=== PATIENT | female | born 1945 | race Caucasian/White ===

== ENCOUNTER → 2024-02-16 09:49 | Outpatient (REF) | payer MEDICARE, OTHER, SELFPAY | LOC: RAD 09:49 | PROVIDERS: ATTENDING PHYSICIAN Internal Medicine | DX: R05.1 Acute cough (principal) | CPT/HCPCS: 71046 ==

== ENCOUNTER → 2024-04-21 13:55 | Outpatient (REF) | payer MEDICARE, OTHER, SELFPAY | LOC: WDC 13:55 | PROVIDERS: ATTENDING PHYSICIAN Internal Medicine | DX: Z12.31 Encounter for screening mammogram for malignant neoplasm of breast (principal) | CPT/HCPCS: 77063; 77067 ==

== ENCOUNTER 2024-07-01 23:08 | Emergency (ER) | payer MEDICARE, OTHER, SELFPAY ==
[2024-07-01 23:12] VITALS: BP 129/68
[2024-07-01 23:14] VITALS: BMI 22.8
[2024-07-01 23:39] LABS: % Basophils 0.7 % (0-2); % Immature Granulocytes 0.4 % (0-0.5); % Lymphocytes 22.2 % (20.5-51.1); % Monocytes 10.8 % (1.7-9.3); % Neutrophils 63.9 % (42.2-75.2); Absolute Basophils 0.1 10^3/uL (0-0.2); Absolute Eosinophils 0.2 10^3/uL (0-0.7); Absolute Lymphocytes 1.7 10^3/uL (1.2-3.4); Absolute Monocytes 0.8 10^3/uL (0.1-0.6); Absolute Neutrophils 4.7 10^3/uL (1.4-6.5); Hematocrit 34.7 % (37.0-47.0); Mean Corp Hgb Conc. 34.6 g/dL (33.0-37.0); Mean Corpuscular Hgb 31.4 pg (27.0-31.0); Mean Corpuscular Volume 90.8 fL (81.0-99.0); Mean Platelet Volume 11.5 fL (7.4-10.4); Nucleated Red Blood Cells % 0 %; Platelet Count 155 10^3/uL (130-400); Red Blood Cell Count 3.82 10^6/uL (4.20-5.40); Red Cell Dist. Width 12.6 % (11.5-14.5); White Blood Cell Count 7.4 10^3/uL (4.8-10.8)
[2024-07-01 23:59] LABS: ALT (SGPT) 25 U/L (0-35); AST (SGOT) 36 U/L (14-36); Albumin 3.9 g/dl (3.5-5.0); Alkaline Phosphatase 81 U/L (38-126); Blood Urea Nitrogen 21 mg/dl (7-17); Carbon Dioxide 28 mmol/L (22-30); Chloride 101 mmol/L (98-107); Estimated Creatinine Clearance 61 ml/min; Glucose 99 mg/dl (70-99); Potassium 4.2 mmol/L (3.5-5.1); Sodium 137 mmol/L (135-145); Total Bilirubin 0.5 mg/dl (0.2-1.3); Total Protein 6.1 g/dl (6.3-8.2); eGFR > 60.00
[2024-07-02] VITALS: BP 112/59
[2024-07-02 00:01] LABS: Troponin I < 0.012 ng/ml
[2024-07-02 01:00] VITALS: BP 123/71
--- NOTE | 2024-07-02 01:27 | ED.GENMED ---
History of Present Illness
General
Chief Complaint: Chest Pain
Source: patient
Exam Limitations: none
Time Seen by Provider: 07/02/24 00:45
Nursing documentation reviewed up to this point in time: agreed with
History of Present Illness
History of Present Illness:
79-year-old female presents from home with substernal, nonradiating chest pain that began around 9:30 PM. She states that she called 911 after waking up with chest heaviness. She does report some nausea and states that sometimes heaviness is
confused with nausea. She states that for the last 2 weeks she has had 3-4 episodes similar to tonight. 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 Alfredo Roper. She states that tonight it did not relieve the pain.
Patient did report some nausea and dizziness after the nitroglycerin so she became concerned and called 911. Patient does have coronary artery disease and cardiac stenting.
Past History
Past History
ED Past Medical History: CAD and Hypercholesterolemia
ED Past Surgical History: Cardiac
Social History
Tobacco: Non-smoker
Alcohol: None
Drug: None
Personal:
Living: with family
Employment: Employed
Review of Systems
Review of Systems
Allergies reviewed?: Yes
All Other Systems: ROS reviewed and negative except as documented in HPI and ROS
Constitutional: Reports no symptoms
EENT: Reports no symptoms
Respiratory: Reports no symptoms
Cardiac: Reports chest pain
ABD/GI: Reports no symptoms
: Reports no symptoms
Musculoskeletal: Reports no symptoms
Skin: Reports no symptoms
Neurological: Reports no symptoms
Endocrine: Reports no symptoms
Hematologic/Lymphatic: Reports no symptoms
Psychiatric: Reports no symptoms
Phy Exam
General Physical Exam
General Presentation: well appearing and no apparent distress
General Skin: warm and dry
General Habitus: normal
General Mental: alert
General Hydration: appears well hydrated
ENT Exam
ENT Exam: EOMI, pharynx normal, neck supple and normocephalic
Eye Exam
Eye Exam: PERRL, cornea clear and conjunctiva normal
Cardiovascular Exam
Cardiovascular Exam: regular rate/rhythm, no edema, no murmur and normal peripheral pulses
Pulmonary Exam
Pulmonary Exam: lungs clear, no respiratory distress, no rales, no crackles, no rhonchi, no stridor, no wheezing and no cough
Gastrointestinal Exam
Gastrointestinal Exam: normal bowel sounds, non tender, soft, no organomegaly, no pulsatile mass and non distended
Neurological Exam
Neurological Exam: alert, oriented x3, no motor deficits and speech normal
Musculoskeletal Exam
Musculoskeletal Exam: full ROM and no edema
Skin Exam
Skin Exam: normal color, warm/dry, no rash and no petechia
Psychiatric Exam
Psychiatric Exam: normal mood/affect
Scores
Heart Score for Chest Pain Patients
STEMI patient?: No
History: Slightly or Non-Suspicious
ECG: Normal
Age: >/= 65 years
Risk Factors: >/= 3 Risk Factors or History of CAD
Troponin: </= Normal Limit
Heart Score for Chest Pain Patients: 4
Heart Score Risk: 20.3% MACE over next 6 weeks
Course
Orders/Labs/Results
Orders:
Orders
07/01/24 23:13
EKG [Electrocardiogram (*1)] Urgent
Reason for Study: Chest Pain
EKG- Treatment ONCE
07/01/24 23:30
Complete Blood Count/With Diff Urgent
Comprehensive Metabolic Panel Urgent
Troponin I Urgent
07/02/24 03:06
Troponin I Urgent
Abnormal Lab Results
07/01/24
23:30
RBC 3.82 L 10^6/uL
(4.20-5.40)
Hct 34.7 L %
(37.0-47.0)
MCH 31.4 H pg
(27.0-31.0)
MPV 11.5 H fL
(7.4-10.4)
Absolute Monos (auto) 0.8 H 10^3/uL
(0.1-0.6)
Monocytes % 10.8 H %
(1.7-9.3)
BUN 21 H mg/dl
(7-17)
Total Protein 6.1 L g/dl
(6.3-8.2)
07/01/24 23:30
07/01/24 23:30
Vital Signs
Initial and Last Documented VS:
Initial Vital Signs
BP
129/68
07/01/24 23:12
Last Documented Vital Signs
Temp Pulse Resp BP Pulse Ox
97.9 F 62 15 113/59 97
07/01/24 23:14 07/02/24 04:00 07/02/24 04:00 07/02/24 04:00 07/02/24 04:00
*Critical Care Note
Total Time (30-74mins, 75-104mins- exclusive of procedures): Not Applicable
ED Attending Note
-
Portions of this chart may have been created with voice recognition software.� Occasional wrong word or��sound alike� substitutions may have occurred due to the inherent limitations of voice recognition software.
Discharge Plan
Departure
Patient Disposition: Home (Routine Discharge)
Date of Disposition: 07/02/24
Time of Disposition: 04:16
Patient with high blood pressure during this ER visit?: No
Discharge Problem:
Chest pain
Instructions: Chest Pain DCA Follow Up
Prescriptions:
No Action
lorazepam 0.5 MG tablet
0.5 mg PO Q4HPRN PRN (Reason: anxiety)
metoprolol succinate 25 MG tablet extended release 24 hr
12.5 mg PO DAILY
cholecalciferol (vitamin D3) [Vitamin D3] 1,000 UNIT tablet
1,000 unit PO DAILY
aspirin 81 MG tablet,chewable
81 mg PO DAILY
atorvastatin 40 MG tablet
80 mg PO QPM
omega-3 acid ethyl esters [Lovaza] 1 GM capsule
1 gm PO DAILY
coenzyme [id number] E [Co Q-10 (with Vit E)] 1 EACH capsule
1 ea PO DAILY
valacyclovir [Valtrex] 1,000 MG tablet
1,000 mg PO PRN PRN (Reason: as directed)
calcium carbonate 600 MG tablet
1,200 mg PO DAILY
lysine HCl 500 MG tablet
500 mg PO DAILY
eknvzvbw-fob-uxbi-FA-vit K-lut [Centrum Silver Women] 1 EACH tablet
1 ea PO DAILY
lansoprazole 30 MG capsule,delayed release(DR/EC)
30 mg PO DAILY
Patient Comments:
stopped 2 days ago
escitalopram oxalate 10 MG tablet
15 mg PO DAILY
ocvaxvimhwn-P1-Jeoboetej serr 1 EACH tablet
1 ea PO DAILY
loratadine 10 MG tablet
10 mg PO DAILY
prednisone 10 MG tablet
10 mg PO DAILY Qty: 16 0RF
doxycycline hyclate 100 MG capsule
100 mg PO Q12 Qty: 12 0RF
ranolazine 500 MG tablet extended release 12 hr
1,000 mg PO BID Qty: 60 10RF
Referrals:
Alfredo Roper MD [Active] - Call in 1-3 days for appt
Kimberly Garner NP [Family Provider] -
Activity Restrictions/Additional Instructions:
It was a pleasure meeting you and taking part in your care. We hope for your continued healing and wellness.
Please read discharge instructions in their entirety. However, they are for general education and may not describe your exact diagnosis at discharge. Information on your ER visit and medical conditions were discussed with you along with appropriate
follow up information...
If indicated, please take your medications as instructed and indicated on discharge paperwork.
Please schedule a follow up appointment as directed. Call to schedule an appointment
Please return to the emergency department with ANY change in, persisting, or worsening of symptoms. If any of your symptoms do not improve, or persist, or become more severe within 6-12 hours, please return to the emergency department for further
care.
Please return to the emergency department if you develop a headache, neck pain/stiffness, fever greater than 100.4F, chest pain, shortness of breath, persistent nausea, vomiting, slurred speech, difficulty walking, numbness/tingling, weakness, signs
of infection or any other symptoms that are worrisome to you.
If you have any questions or concerns please do not hesitate to call the Hospital at or E-mail me directly at [email or web address]
Interventions
Interventions:
*Risk Screen - Suicide Last Done: 07/01/24 23:14
*General Assessment Last Done: 07/01/24 23:14
*Neglect/Abuse Screening Last Done: 07/01/24 23:14
ED- Fall Risk Assessment Last Done: 07/02/24 04:29
*ED COVID-19 Vaccine History Last Done: 07/01/24 23:14
*Nursing Disposition Last Done: 07/02/24 04:29
ED- Cardiac Assessment Last Done: 07/01/24 23:14
Discharge Date and Time
Discharge Date/Time: 07/02/24 04:46
Print Language: KINYARWANDA
[2024-07-02 02:00] VITALS: BP 117/60
[2024-07-02 03:00] VITALS: BP 109/61
[2024-07-02 03:49] LABS: Troponin I < 0.012 ng/ml
[2024-07-02 04:00] VITALS: BP 113/59
== END 2024-07-02 04:46 | disposition home or self-care (01) ==
LOC: EMR 23:08
PROVIDERS: EMERGENCY PHYSICIAN Student in an Organized Health Care Education/Training Program; FAMILY PHYSICIAN Internal Medicine
DX: R07.89 Other chest pain (principal); I25.10 Atherosclerotic heart disease of native coronary artery without angina pectoris; Z95.5 Presence of coronary angioplasty implant and graft
CPT/HCPCS: 99284; 80053; 84484; 85025; 93005

== ENCOUNTER → 2024-07-07 10:14 | Outpatient (REF) | payer MEDICARE, OTHER, SELFPAY | LOC: RCS 10:14 | PROVIDERS: ATTENDING PHYSICIAN Physician Assistant; FAMILY PHYSICIAN Internal Medicine | DX: I25.10 Atherosclerotic heart disease of native coronary artery without angina pectoris (principal) | CPT/HCPCS: 93306 ==

== ENCOUNTER → 2024-10-01 07:43 | Outpatient (REF) | payer MEDICARE, OTHER, SELFPAY ==
[2024-10-01 09:18] LABS: % Basophils 0.6 % (0-2); % Eosinophils 2.6 % (0-6); % Immature Granulocytes 0.4 % (0-0.5); % Lymphocytes 23.9 % (20.5-51.1); % Monocytes 9.7 % (1.7-9.3); % Neutrophils 62.8 % (42.2-75.2); Absolute Eosinophils 0.1 10^3/uL (0-0.7); Absolute Lymphocytes 1.2 10^3/uL (1.2-3.4); Absolute Monocytes 0.5 10^3/uL (0.1-0.6); Absolute Neutrophils 3.2 10^3/uL (1.4-6.5); Hematocrit 38.4 % (37.0-47.0); Hemoglobin 12.8 g/dL (12.0-16.0); Mean Corp Hgb Conc. 33.3 g/dL (33.0-37.0); Mean Corpuscular Hgb 32.7 pg (27.0-31.0); Nucleated Red Blood Cells % 0 %; Platelet Count 189 10^3/uL (130-400); Red Blood Cell Count 3.92 10^6/uL (4.20-5.40); Red Cell Dist. Width 12.4 % (11.5-14.5); White Blood Cell Count 5.1 10^3/uL (4.8-10.8)
[2024-10-01 10:20] LABS: ALT (SGPT) 22 U/L (0-35); AST (SGOT) 36 U/L (14-36); Albumin 4.1 g/dl (3.5-5.0); Alkaline Phosphatase 86 U/L (38-126); Blood Urea Nitrogen 15 mg/dl (7-17); Carbon Dioxide 31 mmol/L (22-30); Chloride 101 mmol/L (98-107); Glucose 91 mg/dl (70-99); HDL Cholesterol 69 mg/dl; Potassium 4.9 mmol/L (3.5-5.1); Sodium 138 mmol/L (135-145); Total Bilirubin 1.1 mg/dl (0.2-1.3); Total Cholesterol 142 mg/dl (50-199); Total Protein 6.2 g/dl (6.3-8.2); Vitamin D, 25-OH*** 43.6 ng/mL (30-80); eGFR > 60.00
[2024-10-01 10:21] LABS: TSH Reflex To Free T4 2.77 uIU/ml (0.47-4.68)
[2024-10-01 11:07] LABS: LDL Cholesterol, Calculated 60 mg/dl; Triglyceride 69 mg/dl (10-149); Very Low Density Lipoprotein 13 mg/dl (0-30)
== END ==
LOC: REG 07:43
PROVIDERS: ATTENDING PHYSICIAN Internal Medicine
DX: Z00.00 Encounter for general adult medical examination without abnormal findings (principal); I25.10 Atherosclerotic heart disease of native coronary artery without angina pectoris; E78.2 Mixed hyperlipidemia; M85.80 Other specified disorders of bone density and structure, unspecified site
CPT/HCPCS: 36415; 80053; 80061; 82306; 84443; 85025

== ENCOUNTER 2025-01-19 09:43 | Emergency (ER) | payer MEDICARE, OTHER, SELFPAY ==
[2025-01-19] VITALS (7 sets, daily range): BP systolic 93–146; BP diastolic 53–88; BMI 22.1
[2025-01-19 10:16] LABS: % Basophils 0.6 % (0-2); % Eosinophils 1.6 % (0-6); % Immature Granulocytes 0.4 % (0-0.5); % Lymphocytes 23.3 % (20.5-51.1); % Monocytes 13.7 % (1.7-9.3); % Neutrophils 60.4 % (42.2-75.2); Absolute Eosinophils 0.1 10^3/uL (0-0.7); Absolute Lymphocytes 1.2 10^3/uL (1.2-3.4); Absolute Monocytes 0.7 10^3/uL (0.1-0.6); Absolute Neutrophils 3.1 10^3/uL (1.4-6.5); Hematocrit 41.3 % (37.0-47.0); Hemoglobin 13.9 g/dL (12.0-16.0); Mean Corp Hgb Conc. 33.7 g/dL (33.0-37.0); Mean Corpuscular Hgb 32.5 pg (27.0-31.0); Mean Corpuscular Volume 96.5 fL (81.0-99.0); Mean Platelet Volume 11.4 fL (7.4-10.4); Nucleated Red Blood Cells % 0 %; Platelet Count 159 10^3/uL (130-400); Red Blood Cell Count 4.28 10^6/uL (4.20-5.40); Red Cell Dist. Width 12.8 % (11.5-14.5); White Blood Cell Count 5.1 10^3/uL (4.8-10.8)
[2025-01-19 10:29] LABS: ALT (SGPT) 32 U/L (0-35); AST (SGOT) 47 U/L (14-36); Albumin 4.3 g/dl (3.5-5.0); Alkaline Phosphatase 74 U/L (38-126); Blood Urea Nitrogen 16 mg/dl (7-17); Calcium 8.8 mg/dl (8.4-10.2); Carbon Dioxide 29 mmol/L (22-30); Chloride 109 mmol/L (98-107); Estimated Creatinine Clearance 61 ml/min; Glucose 92 mg/dl (70-99); Potassium 3.7 mmol/L (3.5-5.1); Sodium 143 mmol/L (135-145); Total Bilirubin 0.8 mg/dl (0.2-1.3); Total Protein 6.7 g/dl (6.3-8.2); eGFR > 60.00
[2025-01-19 11:06] LABS: Troponin I < 0.012 ng/ml
--- NOTE | 2025-01-19 13:43 | ED.GENMED ---
History of Present Illness
General
Chief Complaint: Breathing Problem
Source: patient
Time Seen by Provider: 01/19/25 09:54
History of Present Illness
History of Present Illness:
79-year-old female who presents after she been doing with a cough and a little bit shortness of breath. Reports that she has some chest tightness since yesterday. Recently she was in [place] and felt a scratchy throat prior to going to [place].
Patient denies hemoptysis. No leg swelling.
Past History
Past History
ED Past Medical History: Arrthythmia (Atrial flutter), CAD and Hypercholesterolemia
ED Past Surgical History: Cardiac
Social History
Tobacco: Non-smoker
Alcohol: None
Drug: None
Personal:
Living: with family
Employment: Employed
Phy Exam
Physical Exam
Physical Exam:
CONSTITUTIONAL Patient alert and oriented to person, place and time. Well-appearing. Vital signs reviewed.
HEAD atraumatic, normocephalic.
EYES eyelids normal to inspection, Extraocular muscles intact, Conjunctiva normal, Sclera normal.
NECK normal range of motion, Trachea midline, no jugular venous distention.
RESPIRATORY CHEST No respiratory distress noted, Chest expansion equal, Bilateral breath sounds clear.
CARDIOVASCULAR regular rate and rhythm, Heart sounds normal.
ABDOMEN abdomen nontender, Bowel sounds normal. No distention.
BACK normal inspection, no obvious deformities
UPPER EXTREMITY range of motion normal, Motor strength normal, no cyanosis, no edema.
LOWER EXTREMITY range of motion normal, Motor strength normal, no cyanosis, no edema.
NEURO Speech normal, No focal motor deficits, [place] coma scale 15, Memory normal, Cranial Nerves intact to screening exam.
SKIN skin warm, dry, and normal in color.
Scores
Heart Failure Risk
Heart Failure Risk Score: Not Applicable
Course
Orders/Labs/Results
Orders:
Orders
01/19/25 09:47
EKG [Electrocardiogram (*1)] Urgent
Reason for Study: Chest Pain
EKG- Treatment ONCE
01/19/25 10:04
Complete Blood Count/With Diff Urgent
Comprehensive Metabolic Panel Urgent
Troponin I Urgent
01/19/25 10:25
CR Chest - 2 Views Urgent
Comment:
Reason For Exam: cough
Abnormal Lab Results
01/19/25
10:04
MCH 32.5 H pg
(27.0-31.0)
MPV 11.4 H fL
(7.4-10.4)
Absolute Monos (auto) 0.7 H 10^3/uL
(0.1-0.6)
Monocytes % 13.7 H %
(1.7-9.3)
Chloride 109 H mmol/L
(98-107)
AST 47 H U/L
(14-36)
01/19/25 10:04
01/19/25 10:04
Vital Signs
Initial and Last Documented VS:
Initial Vital Signs
Temp Pulse Resp BP Pulse Ox
98.1 F 84 18 146/88 98
01/19/25 09:44 01/19/25 09:44 01/19/25 09:44 01/19/25 09:44 01/19/25 09:44
Last Documented Vital Signs
Temp Pulse Resp BP Pulse Ox
98.1 F 58 12 115/65 97
01/19/25 09:44 01/19/25 13:30 01/19/25 13:30 01/19/25 13:26 01/19/25 13:30
MDM/Problems Addressed
Differential Diagnosis Includes:
ACS, pneumonia, pneumothorax, reactive airway disease, bronchitis
MDM/Problems Addressed:
Acute bronchitis
*Radiology
Radiology exam reviewed: radiology read reviewed
*Pulse Oximetry
Patient hypoxic: no
*EKG
Interpreted by ED Provider?: Yes
Interpretation: abnormal
Rate: normal
Rhythm: sinus
[place]: normal axis
Ischemia: non-specific ST changes
*Helicopter Crew Chief Interpretation
Rate: normal
Interpretation: normal
Rhythm: sinus
*Critical Care Note
Total Time (30-74mins, 75-104mins- exclusive of procedures): Not Applicable
Data Reviewed
Source: patient
Further Testing Considered But Not Given:
Considered CTA of the chest however no pleuritic pain. No hypoxia. No leg swelling. No signs of DVT.
Patient Management
Escalation/DeEscalation of care consider admission/obs:
Patient appears well. No signs of PE. Suspect acute bronchitis is etiology for her symptoms. Troponin negative despite symptoms since yesterday. Okay for discharge with outpatient follow-up. Albuterol as needed
ED Attending Note
-
Portions of this chart may have been created with voice recognition software.� Occasional wrong word or��sound alike� substitutions may have occurred due to the inherent limitations of voice recognition software.
Discharge Plan
Departure
Patient Disposition: Home (Routine Discharge)
Date of Disposition: 01/19/25
Time of Disposition: 13:46
Patient with high blood pressure during this ER visit?: No
Discharge Problem:
Chest discomfort, Acute bronchitis, Acute upper respiratory infection
Instructions: Acute Bronchitis, Adult (DC), Chest Pain PCP Follow Up
Prescriptions:
New
albuterol sulfate 90 mcg/actuation HFA aerosol inhaler
2 puff inhalation Q6H PRN (Reason: shortness of breath or wheezing) Qty: 6.7 0RF
No Action
lorazepam 0.5 MG tablet
0.5 mg PO Q4HPRN PRN (Reason: anxiety)
metoprolol succinate 25 MG tablet extended release 24 hr
12.5 mg PO DAILY
cholecalciferol (vitamin D3) [Vitamin D3] 1,000 UNIT tablet
1,000 unit PO DAILY
aspirin 81 MG tablet,chewable
81 mg PO DAILY
atorvastatin 40 MG tablet
80 mg PO QPM
omega-3 acid ethyl esters [Lovaza] 1 GM capsule
1 gm PO DAILY
coenzyme [id number] E [Co Q-10 (with Vit E)] 1 EACH capsule
1 ea PO DAILY
valacyclovir [Valtrex] 1,000 MG tablet
1,000 mg PO PRN PRN (Reason: as directed)
calcium carbonate 600 MG tablet
1,200 mg PO DAILY
lysine HCl 500 MG tablet
500 mg PO DAILY
lnyqxebe-ijl-apel-FA-vit K-lut [Centrum Silver Women] 1 EACH tablet
1 ea PO DAILY
lansoprazole 30 MG capsule,delayed release(DR/EC)
30 mg PO DAILY
Patient Comments:
stopped 2 days ago
escitalopram oxalate 10 MG tablet
15 mg PO DAILY
vpspxdrlkfj-R9-Snuhveadt serr 1 EACH tablet
1 ea PO DAILY
loratadine 10 MG tablet
10 mg PO DAILY
prednisone 10 MG tablet
10 mg PO DAILY Qty: 16 0RF
doxycycline hyclate 100 MG capsule
100 mg PO Q12 Qty: 12 0RF
ranolazine 500 MG tablet extended release 12 hr
1,000 mg PO BID Qty: 60 10RF
Referrals:
Kimberly Garner NP [Family Provider] -
Activity Restrictions/Additional Instructions:
Please see your doctor in the next 3 days for follow-up and reevaluation. Return immediately for difficulty breathing, coughing up blood, vomiting, chest pain, weakness of any kind or any other concerns.
Interventions
Interventions:
*Risk Screen - Suicide Last Done: 01/19/25 09:44
*General Assessment Last Done: 01/19/25 09:44
*Neglect/Abuse Screening Last Done: 01/19/25 09:44
*Nursing Disposition Last Done: 01/19/25 14:32
ED- Cardiac Assessment Last Done: 01/19/25 10:00
ED- Pulmonary Assessment Last Done: 01/19/25 10:00
Discharge Date and Time
Discharge Date/Time: 01/19/25 14:33
Print Language: HEBREW
== END 2025-01-19 14:33 | disposition home or self-care (01) ==
LOC: EMR 09:43
PROVIDERS: EMERGENCY PHYSICIAN Emergency Medicine; FAMILY PHYSICIAN Internal Medicine
DX: J06.9 Acute upper respiratory infection, unspecified (principal); J20.9 Acute bronchitis, unspecified; R07.89 Other chest pain
CPT/HCPCS: 99285; 71046; 80053; 84484; 85025; 93005

== ENCOUNTER 2025-01-25 21:21 | Emergency (ER) | payer MEDICARE, OTHER, SELFPAY ==
[2025-01-25 21:30] VITALS: BP 112/53
[2025-01-25 21:32] VITALS: BMI 22.5
--- NOTE | 2025-01-25 21:54 | ED.GENMED ---
History of Present Illness
General
Chief Complaint: Dizziness
Source: patient
Exam Limitations: none
Time Seen by Provider: 01/25/25 21:41
Nursing documentation reviewed up to this point in time: agreed with
History of Present Illness
History of Present Illness:
79-year-old female with history as noted who presents to the emergency department via EMS for evaluation of dizziness. Patient reports sudden onset of symptoms around 7:30 PM while she was watching TV and they have been constant since that time.
She reports a room spinning sensation worse with movement. She reports associated nausea and vomiting. She says she has had URI symptoms�congestion, cough, headaches for the past few days (seen in the ER and diagnosed with bronchitis). She has
never had similar episodes of dizziness in the past. EMS treated her with 1 mg of IV Versed and 4 mg of IV Zofran with some improvement in her symptoms but she still reports significant dizziness. She denies any change in her vision or speech,
focal weakness or numbness in her extremities. Denies any chest pain or shortness of breath.
Past History
Past History
ED Past Medical History: Arrthythmia (Atrial flutter), CAD and Hypercholesterolemia
ED Past Surgical History: Cardiac
Social History
Tobacco: Non-smoker
Alcohol: None
Drug: None
Personal:
Living: with family
Employment: Employed
Review of Systems
Review of Systems
All Other Systems: ROS reviewed and negative except as documented in HPI and ROS
Constitutional: Denies fever or chills
Respiratory: Denies trouble breathing
Cardiac: Denies chest pain
ABD/GI: Reports nausea and vomiting; Denies abdominal pain
: Denies flank pain
Musculoskeletal: Denies neck pain or back pain
Neurological: Reports dizzy and headache; Denies weakness or numbness
Phy Exam
Physical Exam
Physical Exam:
General: Awake, alert, oriented x3; sitting still in bed holding emesis bag
Head: Normocephalic, atraumatic
Eyes: Conjunctiva normal, EOMI�leftward nystagmus; no rotary or vertical nystagmus
Ears: TM somewhat retracted on the left compared to the right but no bulging or erythema of the TMs bilaterally
Throat: Airway intact, handling secretions
Neck: Trachea midline, supple without meningismus
Lungs: Clear to auscultation bilaterally, no wheezing, rales, rhonchi
Heart: Bradycardia with regular rhythm, no murmurs, gallops, or rubs
Abd: Soft, non distended, nontender
Neuro: Cranial nerves intact, speech is fluid without dysarthria, no limb ataxia, motor and sensory intact in all extremities
Extremities: No edema in extremities, warm well-perfused
Scores
Heart Failure Risk
Heart Failure Risk Score: Not Applicable
Heart Score for Chest Pain Patients
STEMI patient?: Not applicable
Withdrawal Assessment of Alcohol
Withdrawal Assessment Completed?: Not applicable
Course
Orders/Labs/Results
Orders:
Orders
01/25/25 21:35
Electrocardiogram (*1) Urgent
Reason for Study: Vertigo / Dizzy
EKG- Treatment ONCE
01/25/25 21:46
CMP [Comprehensive Metabolic Panel] Urgent
Complete Blood Count/With Diff Urgent
01/25/25 21:53
Meclizine [Antivert] 25 mg PO NOW STA
01/25/25 21:54
CT Head W/o Iv Contrast Urgent
Comment:
Reason For Exam: dizziness, headache
01/25/25 22:08
Troponin I Urgent
Abnormal Lab Results
01/25/25
21:46
RBC 3.61 L 10^6/uL
(4.20-5.40)
Hgb 11.7 L g/dL
(12.0-16.0)
Hct 34.4 L %
(37.0-47.0)
MCH 32.4 H pg
(27.0-31.0)
MPV 11.8 H fL
(7.4-10.4)
Absolute Neuts (auto) 8.0 H 10^3/uL
(1.4-6.5)
Neutrophils % 79.9 H %
(42.2-75.2)
Lymphocytes % 12.6 L %
(20.5-51.1)
BUN 23 H mg/dl
(7-17)
Glucose 115 H mg/dl
(70-99)
Total Protein 6.0 L g/dl
(6.3-8.2)
01/25/25 21:46
01/25/25 21:46
Vital Signs
Initial and Last Documented VS:
Initial Vital Signs
Temp Pulse Resp BP Pulse Ox
37.0 C 56 18 112/53 96
01/25/25 21:30 01/25/25 21:30 01/25/25 21:30 01/25/25 21:30 01/25/25 21:30
Last Documented Vital Signs
Temp Pulse Resp BP Pulse Ox
37.0 C 55 17 112/53 100
01/25/25 21:30 01/25/25 21:45 01/25/25 21:45 01/25/25 21:30 01/25/25 21:45
MDM/Problems Addressed
Differential Diagnosis Includes:
Vertigo�eustachian tube dysfunction, labyrinthitis, BPPV; stroke less likely based on clinical picture
MDM/Problems Addressed:
79-year-old female presents for evaluation of acute onset vertiginous symptoms that started this evening in the setting of recent URI symptoms. Suspect likely peripheral vertigo based on history and exam however given her report of headache for the
past few days we will check CT head in an abundance of caution. Will check basic labs, EKG. Symptomatic treatment. Reassess after the above.
Labs reviewed: CBC and CMP no clinically significant abnormalities. Troponin undetectable. CT head no acute abnormalities. Patient feeling much better with treatment here in the ER. Suspect peripheral vertigo related to recent URI. Stable for
discharge, follow-up with PCP patient comfortable with this plan. Copy of labs and imaging given for PCP follow-up. All questions answered.
*Radiology
Radiology exam reviewed: radiology read reviewed
*Pulse Oximetry
Patient hypoxic: no
*EKG
Interpreted by ED Provider?: Yes
Comparison EKG: no changes
Heart Rate: 55
Rate: bradycardiac
Rhythm: sinus
[place]: normal axis
Interval: long QT (Borderline prolonged QT)
QRS Pattern: normal QRS
Ischemia: other (Nonspecific T wave abnormality)
*Critical Care Note
Total Time (30-74mins, 75-104mins- exclusive of procedures): Not Applicable
Data Reviewed
Review of Other/Old Records Reveals: Labs and Records
Source: patient and family
ED Attending Note
-
Portions of this chart may have been created with voice recognition software.� Occasional wrong word or��sound alike� substitutions may have occurred due to the inherent limitations of voice recognition software.
Discharge Plan
Departure
Patient Disposition: Home (Routine Discharge)
Date of Disposition: 01/25/25
Time of Disposition: 23:01
Patient with high blood pressure during this ER visit?: No
Discharge Problem:
Vertigo
Instructions: Vertigo (a Type of Dizziness) (DC)
Prescriptions:
New
meclizine 25 mg tablet
25 mg PO BID PRN (Reason: dizziness) Qty: 14 0RF
No Action
lorazepam 0.5 MG tablet
0.5 mg PO Q4HPRN PRN (Reason: anxiety)
metoprolol succinate 25 MG tablet extended release 24 hr
12.5 mg PO DAILY
cholecalciferol (vitamin D3) [Vitamin D3] 1,000 UNIT tablet
1,000 unit PO DAILY
aspirin 81 MG tablet,chewable
81 mg PO DAILY
atorvastatin 40 MG tablet
80 mg PO QPM
omega-3 acid ethyl esters [Lovaza] 1 GM capsule
1 gm PO DAILY
coenzyme [id number]-[id number] E [Co Q-10 (with Vit E)] 1 EACH capsule
1 ea PO DAILY
valacyclovir [Valtrex] 1,000 MG tablet
1,000 mg PO PRN PRN (Reason: as directed)
calcium carbonate 600 MG tablet
1,200 mg PO DAILY
lysine HCl 500 MG tablet
500 mg PO DAILY
dstwlzgy-yno-pkah-FA-vit K-lut [Centrum Silver Women] 1 EACH tablet
1 ea PO DAILY
lansoprazole 30 MG capsule,delayed release(DR/EC)
30 mg PO DAILY
Patient Comments:
stopped 2 days ago
escitalopram oxalate 10 MG tablet
15 mg PO DAILY
xnrnybmxfcb-F4-Eisjttryn serr 1 EACH tablet
1 ea PO DAILY
loratadine 10 MG tablet
10 mg PO DAILY
prednisone 10 MG tablet
10 mg PO DAILY Qty: 16 0RF
doxycycline hyclate 100 MG capsule
100 mg PO Q12 Qty: 12 0RF
ranolazine 500 MG tablet extended release 12 hr
1,000 mg PO BID Qty: 60 10RF
albuterol sulfate 90 mcg/actuation HFA aerosol inhaler
2 puff inhalation Q6H PRN (Reason: shortness of breath or wheezing) Qty: 6.7 0RF
Referrals:
Tomasa Gaona CRNP [Family Provider, General] - Follow up in 5-7 days
Activity Restrictions/Additional Instructions:
Thank you for visiting the Emergency Department at [facility].
1. Please schedule a follow up appointment as directed. Call first thing tomorrow morning to make an appointment.
2. If indicated, please take your medications as instructed and indicated on discharge paperwork.
3. If any of your symptoms do not improve, or persist, or become more severe within 6-12 hours, please return to the emergency department for further care.
4. Please return to the emergency department if you develop a headache, neck pain/stiffness, fever greater than 100.4F, chest pain, shortness of breath, persistent nausea, vomiting, slurred speech, difficulty walking, numbness/tingling, weakness,
signs of infection or any other symptoms that are worrisome to you.
Please call [phone] if you have any questions.
Interventions
Interventions:
*Risk Screen - Suicide Last Done: 01/25/25 21:32
*General Assessment Last Done: 01/25/25 21:33
*Neglect/Abuse Screening Last Done: 01/25/25 21:32
*ED- Fall Risk Assessment Last Done: 01/25/25 21:51
ED- Neurological Assessment Last Done: 01/25/25 21:50
ED Swallowing Screen Last Done: 01/25/25 21:52
Discharge Date and Time
Print Language: [place]AP[place]
[2025-01-25 21:55] LABS: % Basophils 0.3 % (0-2); % Eosinophils 1.3 % (0-6); % Immature Granulocytes 0.3 % (0-0.5); % Lymphocytes 12.6 % (20.5-51.1); % Monocytes 5.6 % (1.7-9.3); % Neutrophils 79.9 % (42.2-75.2); Absolute Eosinophils 0.1 10^3/uL (0-0.7); Absolute Lymphocytes 1.3 10^3/uL (1.2-3.4); Absolute Monocytes 0.6 10^3/uL (0.1-0.6); Hematocrit 34.4 % (37.0-47.0); Hemoglobin 11.7 g/dL (12.0-16.0); Mean Corpuscular Hgb 32.4 pg (27.0-31.0); Mean Corpuscular Volume 95.3 fL (81.0-99.0); Mean Platelet Volume 11.8 fL (7.4-10.4); Nucleated Red Blood Cells % 0 %; Platelet Count 157 10^3/uL (130-400); Red Blood Cell Count 3.61 10^6/uL (4.20-5.40); Red Cell Dist. Width 12.1 % (11.5-14.5)
[2025-01-25] MEDS: ANTIVERT 25 MG PO (21:58)
[2025-01-25 22:25] LABS: ALT (SGPT) 27 U/L (0-35); AST (SGOT) 33 U/L (14-36); Albumin 3.9 g/dl (3.5-5.0); Alkaline Phosphatase 75 U/L (38-126); Blood Urea Nitrogen 23 mg/dl (7-17); Calcium 8.5 mg/dl (8.4-10.2); Carbon Dioxide 30 mmol/L (22-30); Chloride 106 mmol/L (98-107); Estimated Creatinine Clearance 47 ml/min; Glucose 115 mg/dl (70-99); Potassium 4.1 mmol/L (3.5-5.1); Sodium 137 mmol/L (135-145); Total Bilirubin 0.6 mg/dl (0.2-1.3); eGFR > 60.00
[2025-01-25 22:38] LABS: Troponin I < 0.012 ng/ml
== END 2025-01-25 23:16 | disposition home or self-care (01) ==
LOC: EMR 21:21
PROVIDERS: EMERGENCY PHYSICIAN Emergency Medicine; FAMILY PHYSICIAN Nurse Practitioner Adult Health
DX: R42 Dizziness and giddiness (principal); E78.00 Pure hypercholesterolemia, unspecified; I25.10 Atherosclerotic heart disease of native coronary artery without angina pectoris; R94.31 Abnormal electrocardiogram [ECG] [EKG]
CPT/HCPCS: 99284; 70450; 80053; 84484; 85025; 93005

== ENCOUNTER → 2025-03-04 11:31 | Outpatient (REF) | payer MEDICARE, OTHER, SELFPAY ==
[2025-03-04 12:34] LABS: Hematocrit 38.1 % (37.0-47.0); Hemoglobin 12.6 g/dL (12.0-16.0); Mean Corp Hgb Conc. 33.1 g/dL (33.0-37.0); Mean Corpuscular Volume 96.5 fL (81.0-99.0); Nucleated Red Blood Cells % 0 %; Platelet Count 154 10^3/uL (130-400); Red Cell Dist. Width 12.8 % (11.5-14.5)
== END ==
LOC: REG 11:31
PROVIDERS: ATTENDING PHYSICIAN Nurse Practitioner Adult Health
DX: J01.10 Acute frontal sinusitis, unspecified (principal)
CPT/HCPCS: 36415; 85025

== ENCOUNTER → 2025-04-29 11:42 | Outpatient (REF) | payer MEDICARE, OTHER, SELFPAY | LOC: WDC 11:42 | PROVIDERS: ATTENDING PHYSICIAN Nurse Practitioner Adult Health | DX: Z12.31 Encounter for screening mammogram for malignant neoplasm of breast (principal) | CPT/HCPCS: 77063; 77067 ==

== ENCOUNTER → 2025-05-09 10:52 | Outpatient (REF) | payer MEDICARE, OTHER, SELFPAY | LOC: RAD 10:52 | PROVIDERS: ATTENDING PHYSICIAN Internal Medicine Critical Care Medicine; FAMILY PHYSICIAN Nurse Practitioner Adult Health | DX: R93.89 Abnormal findings on diagnostic imaging of other specified body structures (principal) | CPT/HCPCS: 71046 ==